=== PATIENT | male | born 1935 | race Caucasian/White ===

== ENCOUNTER → 2016-08-13 | Outpatient (CLI) | payer BC ==
[~2016-08-13] MED LIST: ASCA500 PO; B-COTAB18 PO; CHOL1000 PO; CYAN10005 PO; GLC/500 PO; GLIP2.5T11 PO; VITA1TAB4 PO
--- NOTE | 2016-08-13 13:18 | DIAGNOSTIC IMAGING REPORT ---
RIGHT RIBS UNILATERAL WITH PA CHEST CLINICAL HISTORY: Right ribs including PA erect chest right-sided rib pain COMPARISON STUDY: No previous studies for comparison. FINDINGS: The erect chest reveals no pneumothorax. There is mild aortic tortuosity. There is no focal pulmonary consolidation. 4 supplemental views of the right ribs reveal no fractures. IMPRESSION: No evidence of pneumothorax. No right-sided rib fractures identified. Electronically signed by: Timothy Eng M.D. 08/13/2016 1:16 PM Dictated Date/Time: 08/13/2016 1:14 PM
== END | disposition home or self-care (01) ==
LOC: C.RAD1850 09:55
PROVIDERS: ATTEND Internal Medicine
DX: R07.81 Pleurodynia (principal)

== ENCOUNTER → 2016-09-13 | Outpatient (CLI) | payer BC | END | disposition home or self-care (01) | LOC: C.MAMM 09:34 | PROVIDERS: ATTEND Internal Medicine | DX: E21.3 Hyperparathyroidism, unspecified (principal) ==

== ENCOUNTER → 2016-09-15 | Outpatient (CLI) | payer BC ==
[2016-09-15 09:34] LABS: BASO % 0.2 %; BASO ABS # 0.02 K/uL (0-0.2); COMPLETE YES; EOS % 1.7 %; HEMATOCRIT 43.4 % (42-52); IG% 0.2 %; LYMPH ABS # 3.98 K/uL (1.2-3.4); MEAN CELL VOLUME 92.3 fL (80-100); MEAN CORPUSCULAR HEMOGLOBIN 30.9 pg (25-34); MEAN CORPUSCULAR HGB CONC 33.4 g/dl (32-36); MEAN PLATELET VOLUME 10.2 fL (7.4-10.4); MONO % 6.6 %; NEUT % 43.3 %; PLATELET COUNT 251 K/uL (130-400); WHITE BLOOD COUNT 8.29 K/uL (4.8-10.8)
[2016-09-15 09:58] LABS: ALT/SGPT 27 U/L (12-78); AST/SGOT 18 U/L (15-37); BLOOD UREA NITROGEN 15 mg/dl (7-18); BUN/CREATININE RATIO 15.5 (10-20); CALCIUM 11.2 mg/dl (8.5-10.1); CARBON DIOXIDE 28 mmol/L (21-32); CHLORIDE 106 mmol/L (98-107); CHOLESTEROL 228 mg/dl (0-200); CREATININE 0.98 mg/dl (0.60-1.40); GLUCOSE 99 mg/dl (70-99); SODIUM 141 mmol/L (136-145); TRIGLYCERIDES 241 mg/dl (0-150); VERY LOW DENSITY LIPOPROT CALC 48 mg/dl
[2016-09-15 10:02] LABS: ALKALINE PHOSPHATASE 73 U/L (45-117); CHOLESTEROL/HDL RATIO 3.6; HDL CHOLESTEROL 63 mg/dl; LDL CHOLESTEROL CALCULATED 117 mg/dl; PROSTATE SPECIFIC ANTIGEN 0.983 ng/ml (0.000-4.000)
[2016-09-15 10:17] LABS: ESTIMATED AVERAGE GLUCOSE 131 mg/dl; HA1C FLAG Normal (Normal)
[2016-09-15 10:21] LABS: RATIO 7.1 mcg/mg (0-30.0)
--- NOTE | 2016-09-24 07:00 | CODING QUERY MEDICAL NECESSITY ---
CQSUPPORTING DIAGNOSIS NEEDED A supporting diagnosis is required for the test/procedure performed on this patient in order for us to be reimbursed by the patient's insurance. Please provide a supporting diagnosis for the following test/procedure listed below next to the test name along with your signature. *If there is no additional diagnosis for this patient that would support the following test/procedure please document that below next to the test/procedure. Test(s)/Procedure(s) that require a supporting diagnosis: DOS 09/15/16 PROSTATE SPECIFIC TEST (PSA) Provider Signature: Date: Thank you Marlena Ulloa [facility] Information Management Once completed, please kindly fax back to [phone] For questions please call [phone]
== END | disposition home or self-care (01) ==
LOC: C.LAB 08:15
PROVIDERS: ATTEND Internal Medicine
DX: E11.9 Type 2 diabetes mellitus without complications (principal); E55.9 Vitamin D deficiency, unspecified; E21.3 Hyperparathyroidism, unspecified; R19.4 Change in bowel habit; Z12.5 Encounter for screening for malignant neoplasm of prostate

== ENCOUNTER → 2017-03-16 | Outpatient (CLI) | payer BC ==
[2017-03-16 09:31] LABS: BASO % 0.3 %; BASO ABS # 0.02 K/uL (0-0.2); COMPLETE YES; EOS % 2.1 %; HEMATOCRIT 45.9 % (42-52); IG% 0.1 %; LYMPH % 45.6 %; LYMPH ABS # 3.53 K/uL (1.2-3.4); MEAN CELL VOLUME 94.8 fL (80-100); MEAN CORPUSCULAR HGB CONC 32.7 g/dl (32-36); MEAN PLATELET VOLUME 10.9 fL (7.4-10.4); MONO % 6.8 %; NEUT % 45.1 %; PLATELET COUNT 242 K/uL (130-400); RED BLOOD COUNT 4.84 M/uL (4.7-6.1); WHITE BLOOD COUNT 7.74 K/uL (4.8-10.8)
[2017-03-16 09:57] LABS: BLOOD UREA NITROGEN 15 mg/dl (7-18); CALCIUM 11.5 mg/dl (8.5-10.1); CARBON DIOXIDE 31 mmol/L (21-32); CHLORIDE 107 mmol/L (98-107); GLUCOSE 134 mg/dl (70-99); POTASSIUM 4.2 mmol/L (3.5-5.1); SODIUM 140 mmol/L (136-145)
[2017-03-16 10:01] LABS: ALB/GLOB RATIO 1.1 (0.9-2); ALKALINE PHOSPHATASE 80 U/L (45-117); ALT/SGPT 25 U/L (12-78); AST/SGOT 18 U/L (15-37); CHOLESTEROL 203 mg/dl (0-200); CHOLESTEROL/HDL RATIO 3.4; HDL CHOLESTEROL 60 mg/dl; LDL CHOLESTEROL CALCULATED 107 mg/dl; TRIGLYCERIDES 182 mg/dl (0-150); VERY LOW DENSITY LIPOPROT CALC 36 mg/dl
[2017-03-16 10:05] LABS: ESTIMATED AVERAGE GLUCOSE 123 mg/dl; HA1C FLAG Normal (Normal)
== END | disposition home or self-care (01) ==
LOC: C.LAB 07:40
PROVIDERS: ATTEND Internal Medicine
DX: E21.3 Hyperparathyroidism, unspecified (principal); E78.5 Hyperlipidemia, unspecified; E11.9 Type 2 diabetes mellitus without complications

== ENCOUNTER → 2017-09-06 | Outpatient (CLI) | payer BC ==
[2017-09-06 09:52] LABS: ALBUMIN 4.2 gm/dl (3.4-5.0); ALT/SGPT 27 U/L (12-78); BLOOD UREA NITROGEN 14 mg/dl (7-18); CALCIUM 11.4 mg/dl (8.5-10.1); CARBON DIOXIDE 29 mmol/L (21-32); CHOLESTEROL 207 mg/dl (0-200); CREATININE 1.02 mg/dl (0.60-1.40); GLUCOSE 101 mg/dl (70-99); SODIUM 138 mmol/L (136-145)
[2017-09-06 09:57] LABS: ALKALINE PHOSPHATASE 76 U/L (45-117); AST/SGOT 23 U/L (15-37); LDL CHOLESTEROL CALCULATED 127 mg/dl; TOTAL PROTEIN 7.9 gm/dl (6.4-8.2)
[2017-09-06 10:43] LABS: HEMOGLOBIN A1C 6.6 % (4.5-5.6)
== END | disposition home or self-care (01) ==
LOC: C.LAB 08:26
PROVIDERS: ATTEND Internal Medicine
DX: Z12.5 Encounter for screening for malignant neoplasm of prostate (principal); E11.9 Type 2 diabetes mellitus without complications; E78.5 Hyperlipidemia, unspecified; E21.3 Hyperparathyroidism, unspecified; E55.9 Vitamin D deficiency, unspecified

== ENCOUNTER → 2017-10-31 | Outpatient (CLI) | payer BC ==
--- NOTE | 2017-10-31 15:09 | DIAGNOSTIC IMAGING REPORT ---
L RIBS UNILATERAL WITH PA CHEST CLINICAL HISTORY: LT RIB PAIN pain COMPARISON STUDY: None FINDINGS: No acute bony abnormality. Several old healed rib fractures are present. Lungs are clear. No evidence for pneumothorax. IMPRESSION: 1. No acute bony abnormality 2. several old healed left rib fractures. 3. Lungs are clear. The above report was generated using voice recognition software. It may contain grammatical, syntax or spelling errors. Electronically signed by: Jeovany Gatica M.D. 10/31/2017 3:07 PM Dictated Date/Time: 10/31/2017 3:06 PM
== END | disposition home or self-care (01) ==
LOC: C.RAD1850 14:52
PROVIDERS: ATTEND Physician Assistant
DX: R07.81 Pleurodynia (principal)

== ENCOUNTER 2020-03-20 14:55 | Observation (INO) ==
[2020-03-20] MEDS ORDERED: SODIUM CHLORIDE 0.9% 500 ML IV SCH (15:30)
[2020-03-20] MEDS ORDERED: SODIUM CHLORIDE 0.9% 1000ML 1,000 ML IV SCH (15:30)
[2020-03-20 16:02] LABS: Basophils # (auto) 0.01 K/uL (0-0.2); Basophils % (auto) 0.1 %; Eosinophils % (auto) 0.9 %; Hemoglobin 10.9 g/dL (14.0-18.0); Immature Granulocytes # (auto) 0.03 K/uL (0.00-0.02); Immature Granulocytes % (auto) 0.3 %; Lymphocytes # (auto) 3.17 K/uL (1.2-3.4); Lymphocytes % (auto) 27.7 %; Mean Corpuscular Hemoglobin 29.8 pg (25-34); Mean Corpuscular Volume 90.2 fL (80-100); Mean Platelet Volume 9.3 fL (7.4-10.4); Monocytes % (auto) 6.1 %; Neutrophils # (auto) 7.43 K/uL (1.4-6.5); Neutrophils % (auto) 64.9 %; Platelet Count 436 K/uL (130-400); RDW Standard Deviation 42.3 fL (36.4-46.3); Red Blood Count 3.66 M/uL (4.7-6.1); White Blood Count 11.44 K/uL (4.8-10.8)
--- NOTE | 2020-03-20 16:05 | XRay Report ---
XR chest 1V portable CLINICAL HISTORY: weakness COMPARISON STUDY: Chest radiograph August 10, 2019. FINDINGS: Lung volumes are normal. Lungs are clear. There is no pneumothorax or pleural effusion. Car diac size is normal. Mediastinal contours are normal. There is no evidence for pulmonary edema. There is slight elevation of the right hemidiaphragm. IMPRESSION: No acute cardiopulmonary findings. ACT 112: Negative or not required by law. Electronically signed by: Arpit Peoples M.D. 03/20/2020 4:04 PM
[2020-03-20 16:25] LABS: Alanine Aminotransferase 13 U/L (12-78); Albumin Level 2.7 gm/dl (3.4-5.0); Aspartate Aminotransferase 10 U/L (15-37); BUN Creatinine Ratio 16.8 (10-20); Blood Urea Nitrogen 20 mg/dl (7-18); Calcium 13.6 mg/dl (8.5-10.1); Carbon Dioxide 29 mmol/L (21-32); Chloride 105 mmol/L (98-107); Est GFR (Non-African American) 55.2; Glucose 153 mg/dl (70-99); Magnesium 1.9 mg/dl (1.8-2.4); Potassium 3.9 mmol/L (3.5-5.1); Sodium 138 mmol/L (136-145)
--- NOTE | 2020-03-20 16:26 | Emergency Department Note ---
Impression & Plan Hypercalcemia, Weakness ED Provider Note INFORMANT: Patient ED PROVIDER(S): Rahat Mccray MD CHIEF COMPLAINT: Neck pain PLAN: Disposition: Admitted Condition: Good MEDICAL DECISION MAKING: Patient presented with complaints of neck pain. He also had issues with hypercalcemia and was initially declining treatment. He is now agreeable. He was started on IV fluids. ECG revealed a sinus rhythm with a first-degree block. No dysrhythmias or acute changes noted. Patient had blood work obtained. He was found to be hypercalcemic. He underwent CT imaging of the neck. The patient's CBC and chemistry panel were unremarkable except for significant hypercalcemia and hypoalbuminemia. His corrected serum calcium measurement was approximately 14.64. Because of this further management will be necessary in the hospital and the patient is finally in agreement. He was hydrated with normal saline and given subcutaneous calcitonin. Consultation was made with [facility]. The patient was evaluated in the ER admitted for further management. Triage Nursing notes reviewed and agree them. Additional history obtained from patient's Prior medical records reviewed elevated calcium levels noted over the last several months. Increasing recently. Last outpatient blood work had a corrected calcium level over 14. Vital Signs: reviewed and remarkable for no significant abnormalities Differential diagnosis: Infection, dehydration, metabolic abnormality, hypo/hyperglycemia, electrolyte disturbance, anemia, hypoxia, cardiac sources, intracerebral event, toxicologic, neurologic, as well as other pathologies. Diagnostics interpreted by me: ECG: Twelve-lead ECG reveals a sinus rhythm with first-degree block at 79 bpm. Left axis deviation. Inferior Q waves present. No ST elevation or depression. Normal QRS Cardiac Monitoring: Cardiac monitoring ordered by me: The patient was placed on continuous cardiac monitoring and observed. It revealed a normal sinus rhythm at 72 beats per minute without ectopy or evidence of dysrhythmia. Imaging studies: CT imaging of the neck did not reveal any acute process regarding the cervical spine as well as the anterior neck and thyroid. I refer you to the EMR for f urther details. Consultation(s): [facility] hospitalist service, and Gracy Good PA-C HPI: The patient is a 85 year old male who presents to the Emergency Room with complaints of neck pain. This started few days ago and is located anteriorly and is tender to the touch. Patient and significant other also notes that his labs have been abnormal and his PCP has been following him for high calcium levels. He was diagnosed with hyperparathyroidism. PCP was recommending treatment but the patient was declining. PCP even was recommending specialization as his recent levels have been over 13 and the patient was declining. He began to feel weak and rundown. He notes some balance difficulty and was noting fatigue. He agreed to come to the ER for evaluation and treatment. Pt denies LOC, headache, fevers, chills, diaphoresis, visual changes, posterior neck pain, chest pain, breathing difficulties, nausea, vomiting, abdominal pain, back pain, melena, hematochezia, urinary symptoms, numbness,lymphadenopathy, rash, or other complaints. ROS: See above HPI for pertinent positives & negatives. A total of 10 systems reviewed and were otherwise negative. PAST MEDICAL HISTORY:See Below, diabetes, hypertension PAST SURGICAL HISTORY:See Below FAMILY HISTORY:See Below SOCIAL HISTORY:See Below, HOME MEDICATIONS:See Below ALLERGIES:See Below VITALS:See Below PHYSICAL EXAMINATION: GENERAL: Awake, alert, well-appearing, in no distress HENT: Normocephalic, atraumatic. Oropharynx unremarkable. EYES: Normal conjunctiva. Sclera non-icteric. NECK: Inspection normal. Non-tender posteriorly. There is some mild tenderness over the left thyroid cartilage. No obvious masses or abnormalities there. Supple. No nuchal rigidity. FROM. No masses. RESPIRATORY: Clear to auscultation. No wheezes. No rales. Normal respiratory effort. CARDIAC: Normal rate. Normal rhythm. No murmurs. No rubs. Extremities warm and well perfused. Pulses equal. No JVD. GI: Soft, non-distended. No tenderness to palpation. No rebound or guarding. No masses. RECTAL: Deferred. MUSCULOSKELETAL: Atraumatic. Chest examination reveals no tenderness. The back is symmetrical on inspection without obvious abnormality. There is no CVA tenderness to palpation. No joint edema. LOWER EXTREMITIES: Calves are equal size bilaterally and non-tender. No edema. No discoloration. NEURO: Normal sensorium. No sensory or motor deficits noted. SKIN: No rash or jaundice noted. Rahat Mccray MD Past Med/Surg History Medical History (Updated 03/20/20 @ 17:34 by Tamar Good PA-C) H/O adenomatous polyp of colon Hyperparathyroidism Popliteal cyst Type 2 diabetes mellitus Surgical History S/P inguinal hernia repair Family History Sister Bladder cancer Diabetes Mother Diabetes Father Diabetes Denies family history of Ovarian cancer Prostate cancer Myocardial infarction Breast cancer Colorectal cancer Social History Smoking Status: Never smoker Hx Alcohol Use: No Hx Substance Use: No Preferred Language: Czech Communication Ability: Effective Visual Impairment: No Limitations Hearing Ability: Normal marital status: Current Living Situation: Spouse current occupational status: retired Feels Safe at Home: Yes Childhood Exposure to Second-Hand Smoke: Yes Dental Care, Regularly: Yes Physical Activity Frequency: 3-4 Times per Week Seatbelt Use: always Sunscreen Use: No Allergies Allergies Allergy/AdvReac Type Severity Reaction Status Date / Time No Known Allergies Allergy Verified 03/20/20 16:17 Home Meds Home Medications Medication Instructions Recorded Confirmed multivitamin,[id number] 1 tab PO DAILY 08/10/19 03/20/20 Previous Rx's Medication Instructions Recorded glipizide 2.5 mg tablet, extended 2.5 mg PO DAILY #90 tab 09/21/19 release 24 hr metformin 500 mg tablet 500 mg PO DAILY #180 tab 09/21/19 telmisartan 40 mg tablet 40 mg PO DAILY #90 tab 09/21/19 Results & Data (ED) Vital Signs Vital Signs - 24 hr 03/20/20 15:10 03/20/20 15:14 03/20/20 15:56 Temperature 36.9 C Temperature Source Oral Oral Pulse Rate 87 Respiratory Rate 18 Respiratory Effort / Characteristics Non-Labored Spontaneous Respiratory Depth Normal Respiratory Pattern Regular Blood Pressure 104/75 Blood Pressure Mean 84 Pulse Oximetry 95 Oxygen Delivery Method Room Air Room Air Sepsis Recent Fever Within 48 Hours No Sepsis New/Unexplained Change in Mental Status No Sepsis Action Taken by Nursing No Action Required Laboratory Data Result diagrams: 03/20/20 15:53 03/20/20 15:53 Lab Results 03/20/20 03/20/20 Range/Units 15:53 15:53 WBC 11.44 H (4.8-10.8) K/uL RBC 3.66 L (4.7-6.1) M/uL Hgb 10.9 L (14.0-18.0) g/dL Hct 33.0 L (42-52) % MCV 90.2 (80-100) fL MCH 29.8 (25-34) pg MCHC 33.0 (32-36) g/dL RDW Std Deviation 42.3 (36.4-46.3) fL RDW Coeff of Marian 13.0 (11.5-14.5) % Plt Count 436 H (130-400) K/uL MPV 9.3 (7.4-10.4) fL Immature Gran % (Auto) 0.3 % Neut % (Auto) 64.9 % Lymph % (Auto) 27.7 % [place] % (Auto) 6.1 % Eos % (Auto) 0.9 % Baso % (Auto) 0.1 % Neut # (Auto) 7.43 H (1.4-6.5) K/uL Lymph # (Auto) 3.17 (1.2-3.4) K/uL [place] # (Auto) 0.70 H (0.11-0.59) K/uL Eos # (Auto) 0.10 (0-0.5) K/uL Baso # (Auto) 0.01 (0-0.2) K/uL Immature Gran # (Auto) 0.03 H (0.00-0.02) K/uL Sodium 138 (136-145) mmol/L Potassium 3.9 (3.5-5.1) mmol/L Chloride 105 (98-107) mmol/L Carbon Dioxide 29 (21-32) mmol/L Anion Gap 4.0 (3-11) BUN 20 H (7-18) mg/dl Creatinine 1.20 (0.6-1.4) mg/dl Est Cr Clr Drug Dosing Not Reportable Est GFR ( Amer) 64.0 Est GFR (Non-Af Amer) 55.2 BUN/Creatinine Ratio 16.8 (10-20) Glucose 153 H (70-99) mg/dl Calcium 13.6 H* (8.5-10.1) mg/dl Magnesium 1.9 (1.8-2.4) mg/dl Total Bilirubin 0.3 (0.2-1) mg/dl AST 10 L (15-37) U/L ALT 13 (12-78) U/L Alkaline Phosphatase 84 (45-117) U/L Troponin I 0.017 (0-0.045) ng/ml Total Protein 7.3 (6.4-8.2) gm/dl Albumin 2.7 L (3.4-5.0) gm/dl Globulin 4.6 H (2.5-4.0) gm/dl Albumin/Globulin Ratio 0.6 L (0.9-2) TSH 1.550 (0.300-4.500) uIu/ml Administered Medications Sodium Chloride (Nss 1000ml) 1,000 mls @ 125 mls/hr IV .Q8H LISA Stop: 03/20/20 23:29 Last Admin: 03/20/20 16:57 Dose: 125 mls/hr Documented by: [id number] Discontinued Medications Sodium Chloride (Nss) 500 mls @ 999 mls/hr IV .Q31M LISA Stop: 03/20/20 16:00 Last Infusion: 03/20/20 16:57 Dose: 0 mls/hr Documented by: [id number] Admin: 03/20/20 15:58 Dose: 999 mls/hr Documented by: [id number] Ioversol (Ioversol 100ml) 90 ml IV ONCE ONE Stop: 03/20/20 17:16 Last Admin: 03/20/20 17:15 Dose: 90 ml Documented by: [id number] Discharge Plan Visit Data Chief Complaint: Neck Injury/Pain Stated Complaint: THROAT PAIN FOR 1 WEEK ED Provider: Rahat Mccray Discharge Problem: Hypercalcemia, Weakness Forms Stand Alone Forms: [facility] Prescriptions Prescriptions: No Action telmisartan [Micardis] 40 mg tablet 40 mg PO DAILY Qty: 90 RF: 3 glipizide 2.5 mg tablet extended release 24hr 2.5 mg PO DAILY Qty: 90 RF: 3 metformin 500 mg tablet 500 mg PO DAILY Qty: 180 RF: 1 Complete Multivitamin Tablet 1 tab PO DAILY RF: 0
[2020-03-20 16:34] LABS: Albumin Globulin Ratio 0.6 (0.9-2); Alkaline Phosphatase 84 U/L (45-117); Bilirubin,Total 0.3 mg/dl (0.2-1); Globulin 4.6 gm/dl (2.5-4.0); Total Protein 7.3 gm/dl (6.4-8.2); Troponin I 0.017 ng/ml (0-0.045)
[2020-03-20] MEDS ORDERED: CALCITONIN SALMON 400 UNITS/2 ML SQ STA (16:41)
[2020-03-20] MEDS ORDERED: IOVERSOL 100ml IV ONE (17:15)
--- NOTE | 2020-03-20 17:26 | CT Scan Report ---
CERVICAL SPINE CT CT DOSE: 776.98 mGy.cm HISTORY: neck pain TECHNIQUE: Multiaxial CT images of the cervical spine were performed and reformatted in the sagittal and coronal plane without the use of contrast. A dose lowering technique was utilized adhering to th e principles of ALARA. COMPARISON: None. FINDINGS: No fracture or subluxation within the cervical spine. Prevertebral soft tissues and the C1- C2 interval are intact. Severe disc space narrowing from C3 through C7. Moderate facet degenerative c hanges throughout the majority of the cervical spine. Mild central canal narrowing at C3-C4 and C4-C5 due to small broad-based posterior disc osteophyte complexes. No pneumothorax. IMPRESSION: No fractures within the cervical spine. Degenerative changes as described above. ACT 112: Negative or not required by law. Electronically signed by: Ridge Rider M.D. 03/20/2020 5:24 PM
--- NOTE | 2020-03-20 17:29 | CT Scan Report ---
CT soft tissue neck w con HISTORY: 85 years-old Male hypercalcemia, hyperparathyroidism, ant neck pain acute anterior neck jerson n COMPARISON: CT cervical spine of same day and also 02/27/2020 TECHNIQUE: Multiple axial CT images of the soft tissues of the neck were obtained following the intra venous administration of 90 mL Optiray 320. A dose lowering technique was used consistent with the pr incipals of ALARA. FINDINGS: Image intracranial structures demonstrate no acute abnormality. Cerebral vascular calcifications are noted in addition to moderate mixed plaque of the carotid bulbs and proximal internal carotid arterie s. Heterogeneous thyroid. 2.0 x 1.3 cm hypodense nodules again seen posterior to the right thyroid lo be. There is no adenopathy. The parotid and submandibular glands are unremarkable. Streak artifact fr om dental amalgam hardware limits the study. The parapharyngeal fat planes are symmetric and well jacky ntained. The nasopharynx, oral pharynx and hypopharynx are patent. There is mild soft tissue nodular thickening measuring 9 x 8 mm within the region of the median glossoepiglottic fold on image 180 seri es 5. The glottis and subglottic airway appear normal. There is a skin marker noted anterior to the t hyroid cartilage with no focal abnormality identified deep to this. Calcifications of the palatine to nsils. 2 mm likely benign soft tissue nodule of the left upper lobe. Degenerative changes of the spine. No a cute fracture or suspicious bone lesion. IMPRESSION: 1. No acute infectious or inflammatory process involves the soft tissues of the neck. The airway is p atent. 2. No adenopathy. 3. Skin marker of the left paracentral neck superficial to the thyroid cartilage. No abnormalities id entified deep to this. 4. There is subcentimeter soft tissue thickening noted involving the median glossoepiglottic fold. Th is could be correlated with direct visualization to exclude a mucosal lesion. 5. 2.0 x 1.3 cm exophytic nodule of the posterior right thyroid redemonstrated. ACT 112: Negative or not required by law. The above report was generated using voice recognition software. It may contain grammatical, syntax o r spelling errors. Electronically signed by: Geovanny Garcia M.D. 03/20/2020 5:28 PM
--- NOTE | 2020-03-20 17:47 | History & Physical Report ---
Date of Service March 20, 2020 Assessment & Plan (1) Hypercalcemia: -Admit to [facility] with tele -Elevated at 13.6 on admission, corrected calcium with hypoalbuminemia is 14.6 -Increase fluids to 200ml/hr, had received NSS at 125 ml/hr in ER after getting a 500 mL bolus -Trend BMP q6H -Administration of calcitonin 320 U sq x 1 -EKG reviewed -PT/OT consults -Consult endocrinology, Dr. Ricks -CT soft tissue neck reviewed: IMPRESSION: 1. No acute infectious or inflammatory process involves the soft tissues of the neck. The airway is patent. 2. No adenopathy. 3. Skin marker of the left paracentral neck superficial to the thyroid cartilage. No abnormalities identified deep to this. 4. There is subcentimeter soft tissue thickening noted involving the median glossoepiglottic fold. This could be correlated with direct visualization to exclude a mucosal lesion. 5. 2.0 x 1.3 cm exophytic nodule of the posterior right thyroid redemonstrated. - Pt appears to be flushed in the face and over his ears during my exam - likely secondary to calcitriol administration. - Hands appear edematous on exam - possible bony component from hypercalcemia? If not improving consider imaging. (2) Weakness: -Likely secondary to above. (3) Hyperparathyroidism: -PTH 292.7 -Endocrinology consult as above (4) Type 2 diabetes mellitus: -ISS with accuchecks achs -A1c equals 6.2 on 03/11/2020 -Hold glipizide and metformin (5) HTN (hypertension): -Continue telmisartan 40 mg daily in am, BP slightly elevated here in the ER, likely secondary to increased anxiety with being in the ER, can consider use of IV hydralazine overnight if BP remains high. (6) Hyperlipidemia: -Not on statin therapy (7) Vitamin D deficiency: -History of such, continue multivitamin (8) Cervical arthritis: -Chronic, CT of the neck reviewed which does not show any new acute findings, no fractures -Patient with recent fall about 2 weeks ago, was seen here in the ER. Had small laceration to the R wrist but sutures have been removed. Uses a cane at baseline when he is outside the home, but not otherwise. -CT neck reviewed and negative for acute findings other than known nodule as above. -PT/OT consults as above (9) DVT prophylaxis: - teds, scds CODE: Full Dispo: From home, likely to remain in the hospital x 1-2 days History of Present Illness Primary Care Provider: Manish Mejia MD This is a 85 yo male with past medical history of HTN, DM type II, hyperpara thyroidism, thyroid nodule, hypercalcemia, vitamin D deficiency who presents to the ER with complaints of neck pain and by referral of his PCP after some reluctance. Pt is present here with his . Patient was found to have a calcium level of 13.6, which has been ongoing for about a year and slowly trending upward. His albumin has been decreasing at the same time. He has been following with his PCP for this over the past few months and has had elevated calcium levels and was encouraged to seek specialist referral with endocrinology however has been hesitant to seek further recommendations. His main symptoms include fatigue sleeping upwards of 12 hours/day. He also has complaints of neck pain in anterior left region which is been ongoing for about 3 weeks, rates it a 4/10 in pain, and nothing specifically alleviates it. He cannot feel a nodule and denies specific area of swelling in throat. He does not typically have trouble swallowing foods, but occasionally food does get stuck which is alleviated with drinking fluids. Pt reports dry mouth and frequent urination throughout the night which has been ongoing for many months. Lastly, his is concerned that his mood has been poor, and thinks he is depressed. He denies anhedonia, suicidal or homicidal ideations. He has been taking his medication as directed. Patient has received 500 mL bolus NSS and currently remains on fluids. IV calcitonin ordered. EKG has been reviewed without T wave changes. Allergies Allergy/AdvReac Type Severity Reaction Status Date / Time No Known Allergies Allergy Verified 03/20/20 16:17 Home Medications Home Medications Medication Instructions Recorded Confirmed Type multivitamin,ol-etfs-sqahsiog 1 tab PO DAILY 08/10/19 03/20/20 History glipizide 2.5 mg tablet, extended 2.5 mg PO DAILY #90 tab 09/21/19 03/20/20 Rx release 24 hr metformin 500 mg tablet 500 mg PO DAILY #180 tab 09/21/19 03/20/20 Rx telmisartan 40 mg tablet 40 mg PO DAILY #90 tab 09/21/19 03/20/20 Rx cinacalcet 60 mg PO BID 30 Days #60 tab 03/22/20 Rx Past Med/Surg History Medical History (Updated 03/24/20 @ 00:02 by Rick Mason) H/O adenomatous polyp of colon Hyperlipidemia Hyperparathyroidism Popliteal cyst Type 2 diabetes mellitus Vitamin D deficiency Surgical History S/P inguinal hernia repair Family History Sister Bladder cancer Diabetes Mother Diabetes Father Diabetes Denies family history of Ovarian cancer Prostate cancer Myocardial infarction Breast cancer Colorectal cancer Social History Smoking Status: Never smoker Hx Alcohol Use: Yes Alcohol type: beer and wine Hx Substance Use: No Preferred Language: Irish Communication Ability: Effective Visual Impairment: No Limitations Hearing Ability: Normal Desktop Analyst Required: No Beliefs That Will Affect Care: None marital status: Current Living Situation: Spouse current occupational status: retired Feels Safe at Home: Yes Childhood Exposure to Second-Hand Smoke: Yes Dental Care, Regularly: Yes Physical Activity Frequency: 3-4 Times per Week Seatbelt Use: always Sunscreen Use: No Review of Systems Review of Systems: Constitutional: No fever, sweats or chills Eyes: No diplopia, no worsening or blurred vision ENT: normal hearing, no trouble swallowing, + occasional food gets stuck with swallowing but alleviated with drinking fluid, no edema, + tenderness with palpation of the left anterior neck. Respiratory: No cough, sputum, dyspnea at rest or on exertion Cardiovascular: No chest pain, tightness or palpitations Abdomen: No pain, nausea, vomiting, diarrhea or constipation Musculoskeletal: No joint pain, calf pain, swelling Neurologic: No weakness, numbness/tingling, or balance problems Psychiatric: No anxiety or depression Skin: No rash or itch Physical Exam Physical Exam: General: awake, alert, no apparent distress Head: Normocephalic, atraumatic, + flushed over cheeks and ears bilaterally ENT: PERRL, EOMI, no pharyngeal exudate, mucous membranes moist, no edema. Chest: Clear to auscultation, on room air, no adventitious breath sounds Cardiac: Regular rate and rhythm, no murmur, no JVD, normal peripheral pulses, good capillary refill Abdominal: NABS x 4 quadrants, soft, nondistended, nontender to palpation, no rebound or guarding Extremities: + peripheral edema involving hands bilaterally and feet with 1+ pitting up to knees. No erythema, calfs nontender to palpation Psych: Normal mood and affect Neuro: AAO x 3, strength intact bilaterally and rated 5/5, no motor deficits, speech is clear, no peripheral sensory deficits Results & Data Results & Data ([facility]) Vital Signs (Past 12 Hours) Vital Signs Temp Pulse Resp BP Pulse Ox 03/20/20 15:10 36.9 C 87 18 104/[address] soft tissue neck w con HISTORY: 85 years-old Male hypercalcemia, hyperparathyroidism, ant neck pain acute anterior neck pain COMPARISON: CT cervical spine of same day and also 02/27/2020 TECHNIQUE: Multiple axial CT images of the soft tissues of the neck were obtained following the intravenous administration of 90 mL Optiray 320. A dose lowering technique was used consistent with the principals of CHRISTY. FINDINGS: Image intracranial structures demonstrate no acute abnormality. Cerebral vascular calcifications are noted in addition to moderate mixed plaque of the carotid bulbs and proximal internal carotid arteries. Heterogeneous thyroid. 2.0 x 1.3 cm hypodense nodules again seen posterior to the right thyroid lobe. There is no adenopathy. The parotid and submandibular glands are unremarkable. Streak artifact from dental amalgam hardware limits the study. The parapharyngeal fat planes are symmetric and well maintained. The nasopharynx, oral pharynx and hypopharynx are patent. There is mild soft tissue nodular thickening measuring 9 x 8 mm within the region of the median glossoepiglottic fold on image 180 series 5. The glottis and subglottic airway appear normal. There is a skin marker noted anterior to the thyroid cartilage with no focal abnormality identified deep to this. Calcifications of the palatine tonsils. 2 mm likely benign soft tissue nodule of the left upper lobe. Degenerative changes of the spine. No acute fracture or suspicious bone lesion. IMPRESSION: 1. No acute infectious or inflammatory process involves the soft tissues of the neck. The airway is patent. 2. No adenopathy. 3. Skin marker of the left paracentral neck superficial to the thyroid cartilage. No abnormalities identified deep to this. 4. There is subcentimeter soft tissue thickening noted involving the median glossoepiglottic fold. This could be correlated with direct visualization to exclude a mucosal lesion. 5. 2.0 x 1.3 cm exophytic nodule of the posterior right thyroid redemonstrated. ECG Additional Comments: 20-MAR-2020 16:04:53 [facility]-EDSTAT ROUTINE RETRIEVAL Sinus rhythm with 1st degree A-V block Left axis deviation Inferior infarct , age undetermined Abnormal ECG No previous ECGs available 25mm/s 10mm/mV 150Hz 9.0.9 12SL 241 HD GORDY: 12 Referred by: Manish Mejia Unconfirmed Vent. rate 79 BPM WI interval 268 ms QRS duration 82 ms QT/QTc 336/385 ms P-R-T axes 40 -44 11 Code Status & VTE Plan Code Status Full -discussed with the patient and his at bedside. Supervising Physician Co-Signing Physician Notes During my face to face encounter with the patient, I obtained a history and physical examination on the patient. I discussed plan of care with patient and Gracy Good and answered patient's questions. I reviewed above note and agree with it. In regards to the patient's hypercalcemia, will place patient on calcitonin and IVF. will monitor calcium PG Care Time/CCT Total # of Minutes Spent Total Time Spent with Patient: Total time spent is greater than 50% in coordination of care (as documented) at patient's floor/unit and/or counseling patient: Coding Level of Care Code 48898 Initial Inpt Care Lvl 3 Diagnoses Hypercalcemia E83.52 Weakness R53.1 Hyperparathyroidism E21.3 Type 2 diabetes mellitus E11.9 HTN (hypertension) I10 Hyperlipidemia E78.5 Vitamin D deficiency E55.9 Cervical arthritis M47.812 DVT prophylaxis Z29.9
[2020-03-20 18:15] LABS: Appearance Urine Clear (Clear); Bilirubin Urine Negative (Negative); Blood Urine Negative (Negative); Color Urine Dark Yellow; Glucose Urine UA Negative (Negative); Ketones Urine Negative (Negative); Leukocyte Esterase Urine Negative (Negative); Nitrite Urine Negative (Negative); Protein Urine Negative (Negative); Specific Gravity Urine 1.011 (1.000-1.030); Urobilinogen Urine Negative (Negative)
[2020-03-20] MEDS ORDERED: ACETAMINOPHEN 325 MG TAB PO PRN (19:38)
[2020-03-20] MEDS ORDERED: GLUCAGON FOR INJ 1 MG VIAL SQ PRN (19:38)
[2020-03-20] MEDS ORDERED: CARBOHYDRATES FOR HYPOGLYCEMIA PO PRN (19:38)
[2020-03-20] MEDS ORDERED: ONDANSETRON INJ 2 MG/ML 2 ML VIAL IV PRN (19:38)
[2020-03-20] MEDS ORDERED: DEXTROSE 50% 50 ML SYRINGE IV PRN (19:38)
[2020-03-20] MEDS ORDERED: GLUCOSE 40% GEL 15 GM TUBE PO PRN (19:38)
[2020-03-20] MEDS ORDERED: GLUCOSE 10 TABS/TUBE PO PRN (19:38)
[2020-03-20] MEDS: SODIUM CHLORIDE 0.9% 1000ML 1,000 ML IV SCH (20:15)
[2020-03-20] MEDS: INSULIN ASPART 100 UNITS/ML 3 ML PEN SC SCH (20:49)
[2020-03-20 22:46] LABS: BUN Creatinine Ratio 16.4 (10-20); Calcium 12.7 mg/dl (8.5-10.1); Creatinine Clr Calc Pharmacy 46.6 ml/min; Est GFR (African American) 65.3; Est GFR (Non-African American) 56.3
[2020-03-21] MEDS: SODIUM CHLORIDE 0.9% 1000ML 1,000 ML IV SCH (01:20)
[2020-03-21 03:50] LABS: Hematocrit (blood only) 31.4 % (42-52); Hemoglobin 10.4 g/dL (14.0-18.0); Mean Corpuscular Hemoglobin 29.9 pg (25-34); Mean Corpuscular Hgb Conc 33.1 g/dL (32-36); Mean Corpuscular Volume 90.2 fL (80-100); Mean Platelet Volume 9.4 fL (7.4-10.4); Platelet Count 409 K/uL (130-400); RDW Standard Deviation 42.4 fL (36.4-46.3); Red Blood Count 3.48 M/uL (4.7-6.1); White Blood Count 9.98 K/uL (4.8-10.8)
[2020-03-21 04:07] LABS: BUN Creatinine Ratio 16.6 (10-20); Calcium 11.6 mg/dl (8.5-10.1); Creatinine Clr Calc Pharmacy 51.9 ml/min; Est GFR (African American) 74.3; Est GFR (Non-African American) 64.1; Magnesium 1.7 mg/dl (1.8-2.4); Potassium 3.8 mmol/L (3.5-5.1)
[2020-03-21 04:20] LABS: Phosphorus 1.5 mg/dl (2.5-4.9)
[2020-03-21] MEDS: CEROVITE ADV FORMULA TAB PO SCH (08:26)
[2020-03-21] MEDS: TELMISARTAN 40 MG TAB PO SCH (08:26)
[2020-03-21] MEDS: INSULIN ASPART 100 UNITS/ML 3 ML PEN SC SCH ×4 (08:28→20:11)
[2020-03-21] MEDS ORDERED: CALCITONIN SALMON 400 UNITS/2 ML SQ SCH (09:00)
[2020-03-21] MEDS: CALCITONIN SALMON SQ SCH ×2 (10:38→20:09)
--- NOTE | 2020-03-21 12:38 | Electrocardiogram Report ---
Test Reason : Blood Pressure : / mmHG Vent. Rate : 079 BPM Atrial Rate : 079 BPM P-R Int : 268 ms QRS Dur : 082 ms QT Int : 336 ms P-R-T Axes : 040 -44 011 degrees QTc Int : 385 ms Sinus rhythm with 1st degree A-V block Left axis deviation possible Inferior infarct , age undetermined Abnormal ECG No previous ECGs available Confirmed by Gurdeep Mantilla ([id number]) on 03/21/2020 12:38:09 PM Referred By: Manish Mejia Confirmed By:Roosevelt Mantilla
--- NOTE | 2020-03-21 12:56 | Medical Student Progress Note ---
Date of Service March 21, 2020 Assessment & Plan (1) Hypercalcemia: -Corrected calcitonin on admission was 14.3 and was improved to 12.8 today demonstrating calcitonin response. -Trend BMP q6H -Continue administration of calcitonin 320 U sq x 1 QD -PT/OT consults -Consult endocrinology, Dr. Ricks -Appreciate rec. Going to confirm inpatient endo service exists -Hands appear swollen. (2) Weakness: -PT/OT consult -Likely secondary to above. (3) Hyperparathyroidism: Elevated calcium + elevated PTH points to primary hyperparathyroidism diagnosis. -PTH 292.7 -Endocrinology consult as above (4) Type 2 diabetes mellitus: -ISS with accuchecks achs -A1c equals 6.2 on 03/11/2020 -Hold glipizide and metformin (5) HTN (hypertension): -Continue telmisartan 40 mg daily (6) Hyperlipidemia: -Not on statin therapy -Recommend on discharge to follow up with pcp to discuss statin therapy. (7) Vitamin D deficiency: -History of such, continue multivitamin (8) Cervical arthritis: -PT/OT consults as above (9) DVT prophylaxis: - teds, scds CODE: full F/E/N: Heart healthy, DM 2 PT/OT: Ordered Dispo: Telemetry Admission and Anticipated Discharge Date Admission Date: March 20, 2020 Supervising Attestation Attending attestation Pt seen and examined in concert with Dr. Coffman, Std Dr Khan. In agreement with the documented findings as noted in the resident documentation with any exceptions or additions as noted here. 85 y/o male h/o hyperparathyroidism and hypercalcemia, DMII, HTN, cervical arthritis presents with neck pain, weakness, hypercalcemia Somnolent in bed but interactive - complains of persistent weakness and polyuria, as well as chronic intermittent hand swelling - still would like to be discharged ROGELIO despite this. On examination, S1/S2 nl RRR no MCG. CTAB. Abd NT/ND BS+ve Hypercalcemia 2/2 hyperparathyroidism - downtrending calcium s/p calcitonin - continue dose, transition to daily. Would definitely benefit from PT/OT. Endocrinology consultation if able inpatient. DMII - ISS - restart glipizide and metformin at discharge HLD - would recommend statin therapy at follow up from discharge Else see resident documentation as noted. Subjective Pt is an 85 year old male with a PMH hyperparathyroid, DMT2, and hypercalcemia presenting with neck pain, fatigue, weakness, and frequent urination diagnosed with primary hyperparathyroidism with new symptomatic hypercalcemia. Pt was aware of increasing calcium levels and was regularly notified by primary care physician about the need for treatment. Pt reports an intermittent, sharp, "burning" pain in his anterior left neck which prompted a visit with his PCP and was endorsed by both his and PCP to come to the ER. The pt denies any difficulty breathing or swallowing. Pt endorses weakness, fatigue and balance difficulties. Denies nausea or vomiting, fever chills, or LOC. Pt was given IVF and Calcitonin. The IVF was discontinued due to observation of swollen hands. Upon questioning the pt this morning, swollen hands were found to be consistent with his usual state of health over the last few month. CT of his neck discovered benign 2 cm nodule on left upper lobe. Pt was unsteady a few weeks ago which resulted in a FOOSH with no fractures but a discovery of cervical arthritis. Pt is apprehensive to surgery due to extended pain from previous hernia sx. This morning pt was found sitting upright in bed in no acute distress. No new events overnight and slept okay. Tolerating diet, voiding, and endorses constipation. All questions answered, no acute concerns. Still endorses left anterior neck pain, with no change in severity. Review of Systems Constitutional: + fatigue and + weakness Ear, Nose, Mouth, Throat: as per Subjective / HPI Endocrine: + fatigue Physical Exam Constitutional: Pt was well appearing seated up in bed upon entry. Neck: trachea midline, no thyromegaly normal visual inspection Respiratory: normal respiratory effort, lungs clear to auscultation Cardiovascular: Rate/Rhythm: regular rate and regular rhythm Heart Sounds: normal S1 and normal S2 Gastrointestinal (Abdomen): normal bowel sounds, soft, nontender, no hepatosplenomegaly Results & Data ([facility]) Vital Signs (Past 12 Hours) Vital Signs Temp Pulse Resp BP BP Pulse Ox 03/21/20 11:37 36.4 C L 72 18 168/77 H 93 03/21/20 06:32 36.8 C 82 18 138/76 92 03/21/20 04:07 36.7 C 80 18 125/67 94 Laboratory Results 03/21/20 03/21/20 03/21/20 Range/Units 11:30 08:37 07:44 WBC (4.8-10.8) K/uL RBC (4.7-6.1) M/uL Hgb (14.0-18.0) g/dL Hct (42-52) % MCV (80-100) fL MCH (25-34) pg MCHC (32-36) g/dL RDW Std Deviation (36.4-46.3) fL RDW Coeff of Marian (11.5-14.5) % Plt Count (130-400) K/uL MPV (7.4-10.4) fL Immature Gran % (Auto) % Neut % (Auto) % Lymph % (Auto) % [place] % (Auto) % Eos % (Auto) % Baso % (Auto) % Neut # (Auto) (1.4-6.5) K/uL Lymph # (Auto) (1.2-3.4) K/uL [place] # (Auto) (0.11-0.59) K/uL Eos # (Auto) (0-0.5) K/uL Baso # (Auto) (0-0.2) K/uL Immature Gran # (Auto) (0.00-0.02) K/uL Sodium (136-145) mmol/L Potassium (3.5-5.1) mmol/L Chloride (98-107) mmol/L Carbon Dioxide (21-32) mmol/L Anion Gap (3-11) BUN (7-18) mg/dl Creatinine (0.6-1.4) mg/dl Est Cr Clr Drug Dosing Est GFR ( Amer) Est GFR (Non-Af Amer) BUN/Creatinine Ratio (10-20) Glucose (70-99) mg/dl POC Glucose 150 H 189 H (70-99) mg/dl Calcium (8.5-10.1) mg/dl Ionized Calcium 1.57 H (1.12-1.32) mmol/L Phosphorus (2.5-4.9) mg/dl Magnesium (1.8-2.4) mg/dl Total Bilirubin (0.2-1) mg/dl AST (15-37) U/L ALT (12-78) U/L Alkaline Phosphatase (45-117) U/L Troponin I (0-0.045) ng/ml Total Protein (6.4-8.2) gm/dl Albumin (3.4-5.0) gm/dl Globulin (2.5-4.0) gm/dl Albumin/Globulin Ratio (0.9-2) TSH (0.300-4.500) uIu/ml Urine Color Urine Appearance (Clear) Urine pH (4.5-7.5) Ur Specific [place] (1.000-1.030) Urine Protein (Negative) Urine Glucose (UA) (Negative) Urine Ketones (Negative) Urine Blood (Negative) Urine Nitrite (Negative) Urine Bilirubin (Negative) Urine Urobilinogen (Negative) Ur Leukocyte Esterase (Negative) 03/21/20 03/21/20 03/20/20 Range/Units 03:34 03:34 21:50 WBC 9.98 (4.8-10.8) K/uL RBC 3.48 L (4.7-6.1) M/uL Hgb 10.4 L (14.0-18.0) g/dL Hct 31.4 L (42-52) % MCV 90.2 (80-100) fL MCH 29.9 (25-34) pg MCHC 33.1 (32-36) g/dL RDW Std Deviation 42.4 (36.4-46.3) fL RDW Coeff of Marian 13.0 (11.5-14.5) % Plt Count 409 H (130-400) K/uL MPV 9.4 (7.4-10.4) fL Immature Gran % (Auto) % Neut % (Auto) % Lymph % (Auto) % Edmunds % (Auto) % Eos % (Auto) % Baso % (Auto) % Neut # (Auto) (1.4-6.5) K/uL Lymph # (Auto) (1.2-3.4) K/uL [place] # (Auto) (0.11-0.59) K/uL Eos # (Auto) (0-0.5) K/uL Baso # (Auto) (0-0.2) K/uL Immature Gran # (Auto) (0.00-0.02) K/uL Sodium 140 140 (136-145) mmol/L Potassium 3.8 4.0 (3.5-5.1) mmol/L Chloride 110 H 106 (98-107) mmol/L Carbon Dioxide 27 27 (21-32) mmol/L Anion Gap 3.0 7.0 (3-11) BUN 18 19 H (7-18) mg/dl Creatinine 1.06 1.18 (0.6-1.4) mg/dl Est Cr Clr Drug Dosing 51.9 46.6 Est GFR ( Amer) 74.3 65.3 Est GFR (Non-Af Amer) 64.1 56.3 BUN/Creatinine Ratio 16.6 16.4 (10-20) Glucose 197 H 271 H (70-99) mg/dl POC Glucose (70-99) mg/dl Calcium 11.6 H 12.7 H* (8.5-10.1) mg/dl Ionized Calcium (1.12-1.32) mmol/L Phosphorus 1.5 L* (2.5-4.9) mg/dl Magnesium 1.7 L (1.8-2.4) mg/dl Total Bilirubin (0.2-1) mg/dl AST (15-37) U/L ALT (12-78) U/L Alkaline Phosphatase (45-117) U/L Troponin I (0-0.045) ng/ml Total Protein (6.4-8.2) gm/dl Albumin (3.4-5.0) gm/dl Globulin (2.5-4.0) gm/dl Albumin/Globulin Ratio (0.9-2) TSH (0.300-4.500) uIu/ml Urine Color Urine Appearance (Clear) Urine pH (4.5-7.5) Ur Specific [place] (1.000-1.030) Urine Protein (Negative) Urine Glucose (UA) (Negative) Urine Ketones (Negative) Urine Blood (Negative) Urine Nitrite (Negative) Urine Bilirubin (Negative) Urine Urobilinogen (Negative) Ur Leukocyte Esterase (Negative) 03/20/20 03/20/20 03/20/20 Range/Units 19:35 17:07 15:53 WBC 11.44 H (4.8-10.8) K/uL RBC 3.66 L (4.7-6.1) M/uL Hgb 10.9 L (14.0-18.0) g/dL Hct 33.0 L (42-52) % MCV 90.2 (80-100) fL MCH 29.8 (25-34) pg MCHC 33.0 (32-36) g/dL RDW Std Deviation 42.3 (36.4-46.3) fL RDW Coeff of Marian 13.0 (11.5-14.5) % Plt Count 436 H (130-400) K/uL MPV 9.3 (7.4-10.4) fL Immature Gran % (Auto) 0.3 % Neut % (Auto) 64.9 % Lymph % (Auto) 27.7 % Edmunds % (Auto) 6.1 % Eos % (Auto) 0.9 % Baso % (Auto) 0.1 % Neut # (Auto) 7.43 H (1.4-6.5) K/uL Lymph # (Auto) 3.17 (1.2-3.4) K/uL Ed[place] # (Auto) 0.70 H (0.11-0.59) K/uL Eos # (Auto) 0.10 (0-0.5) K/uL Baso # (Auto) 0.01 (0-0.2) K/uL Immature Gran # (Auto) 0.03 H (0.00-0.02) K/uL Sodium (136-145) mmol/L Potassium (3.5-5.1) mmol/L Chloride (98-107) mmol/L Carbon Dioxide (21-32) mmol/L Anion Gap (3-11) BUN (7-18) mg/dl Creatinine (0.6-1.4) mg/dl Est Cr Clr Drug Dosing Est GFR ( Amer) Est GFR (Non-Af Amer) BUN/Creatinine Ratio (10-20) Glucose (70-99) mg/dl POC Glucose 153 H (70-99) mg/dl Calcium (8.5-10.1) mg/dl Ionized Calcium (1.12-1.32) mmol/L Phosphorus (2.5-4.9) mg/dl Magnesium (1.8-2.4) mg/dl Total Bilirubin (0.2-1) mg/dl AST (15-37) U/L ALT (12-78) U/L Alkaline Phosphatase (45-117) U/L Troponin I (0-0.045) ng/ml Total Protein (6.4-8.2) gm/dl Albumin (3.4-5.0) gm/dl Globulin (2.5-4.0) gm/dl Albumin/Globulin Ratio (0.9-2) TSH (0.300-4.500) uIu/ml Urine Color Dark Yellow Urine Appearance Clear (Clear) Urine pH 7.0 (4.5-7.5) Ur Specific [place] 1.011 (1.000-1.030) Urine Protein Negative (Negative) Urine Glucose (UA) Negative (Negative) Urine Ketones Negative (Negative) Urine Blood Negative (Negative) Urine Nitrite Negative (Negative) Urine Bilirubin Negative (Negative) Urine Urobilinogen Negative (Negative) Ur Leukocyte Esterase Negative (Negative) 03/20/20 Range/Units 15:53 WBC (4.8-10.8) K/uL RBC (4.7-6.1) M/uL Hgb (14.0-18.0) g/dL Hct (42-52) % MCV (80-100) fL MCH (25-34) pg MCHC (32-36) g/dL RDW Std Deviation (36.4-46.3) fL RDW Coeff of Marian (11.5-14.5) % Plt Count (130-400) K/uL MPV (7.4-10.4) fL Immature Gran % (Auto) % Neut % (Auto) % Lymph % (Auto) % [place] % (Auto) % Eos % (Auto) % Baso % (Auto) % Neut # (Auto) (1.4-6.5) K/uL Lymph # (Auto) (1.2-3.4) K/uL [place] # (Auto) (0.11-0.59) K/uL Eos # (Auto) (0-0.5) K/uL Baso # (Auto) (0-0.2) K/uL Immature Gran # (Auto) (0.00-0.02) K/uL Sodium 138 (136-145) mmol/L Potassium 3.9 (3.5-5.1) mmol/L Chloride 105 (98-107) mmol/L Carbon Dioxide 29 (21-32) mmol/L Anion Gap 4.0 (3-11) BUN 20 H (7-18) mg/dl Creatinine 1.20 (0.6-1.4) mg/dl Est Cr Clr Drug Dosing Not Reportable Est GFR ( Amer) 64.0 Est GFR (Non-Af Amer) 55.2 BUN/Creatinine Ratio 16.8 (10-20) Glucose 153 H (70-99) mg/dl POC Glucose (70-99) mg/dl Calcium 13.6 H* (8.5-10.1) mg/dl Ionized Calcium (1.12-1.32) mmol/L Phosphorus (2.5-4.9) mg/dl Magnesium 1.9 (1.8-2.4) mg/dl Total Bilirubin 0.3 (0.2-1) mg/dl AST 10 L (15-37) U/L ALT 13 (12-78) U/L Alkaline Phosphatase 84 (45-117) U/L Troponin I 0.017 (0-0.045) ng/ml Total Protein 7.3 (6.4-8.2) gm/dl Albumin 2.7 L (3.4-5.0) gm/dl Globulin 4.6 H (2.5-4.0) gm/dl Albumin/Globulin Ratio 0.6 L (0.9-2) TSH 1.550 (0.300-4.500) uIu/ml Urine Color Urine Appearance (Clear) Urine pH (4.5-7.5) Ur Specific [place] (1.000-1.030) Urine Protein (Negative) Urine Glucose (UA) (Negative) Urine Ketones (Negative) Urine Blood (Negative) Urine Nitrite (Negative) Urine Bilirubin (Negative) Urine Urobilinogen (Negative) Ur Leukocyte Esterase (Negative) Medications Administered Current Inpatient Medications Acetaminophen (Acetaminophen 325 Mg Tab) 650 mg PO Q4H PRN PRN Reason: Moderate Pain Stop: 04/19/20 19:37 Dextrose (Dextrose 50% 50 Ml Syringe) 25 - 50 ml IV UD PRN; Protocol PRN Reason: Hypoglycemia Protocol Stop: 04/19/20 19:37 Glucagon (Glucagon For Inj 1 Mg Vial) 1 mg SQ UD PRN; Protocol PRN Reason: Hypoglycemia Protocol Stop: 04/19/20 19:37 Glucose (Glucose 10 Tabs/Tube) 4 - 8 tabs PO UD PRN; Protocol PRN Reason: Hypoglycemia Protocol Stop: 04/19/20 19:37 Glucose (Glucose 40% Gel 15 Gm Tube) 15 - 30 gm PO UD PRN; Protocol PRN Reason: Hypoglycemia Protocol Stop: 04/19/20 19:37 Sodium Chloride (Nss 1000ml) 1,000 mls @ 200 mls/hr IV .Q5H LISA Stop: 04/19/20 19:37 Last Infusion: 03/21/20 10:20 Dose: Infused Documented by: Calcitonin [place] 320 units/ (Syringe) 1.6 mls @ 0 mls/sec SQ BID LISA Stop: 04/20/20 09:29 Last Admin: 03/21/20 10:38 Dose: 320 mls/sec Documented by: Insulin Aspart (Insulin Aspart 100 Units/Ml 3 Ml Pen) 0 units SC ACHS LISA Stop: 04/19/20 20:59 Last Admin: 03/21/20 12:40 Dose: Not Given Documented by: Miscellaneous (Carbohydrates For Hypoglycemia ) 15 - 30 gm PO UD PRN PRN Reason: Hypoglycemia Protocol Stop: 04/19/20 19:37 Multivitamins/Minerals (Cerovite Adv Formula Tab) 1 tab PO DAILY LISA Stop: 04/20/20 08:59 Last Admin: 03/21/20 08:26 Dose: 1 tab Documented by: Ondansetron HCl (Ondansetron Inj 2 Mg/Ml 2 Ml Vial) 4 mg IV Q4H PRN PRN Reason: Nausea And Vomiting Stop: 04/19/20 19:37 Telmisartan (Telmisartan 40 Mg Tab) 40 mg PO DAILY LISA Stop: 04/20/20 08:59 Last Admin: 03/21/20 08:26 Dose: 40 mg Documented by: Resident Activity Tracking Resident Involvement: Resident Care Provided (I supervised Mally and was present during the evaluation and examination the patient. I reviewed her findings and agree with her assement and plan. ) Care Provided: Adult Hospital Medicine
[2020-03-21] MEDS: POLYETHYLENE (MIRALAX) 17 GM PACK PO SCH (20:11)
[2020-03-22 07:44] LABS: Hematocrit (blood only) 35.8 % (42-52); Hemoglobin 11.8 g/dL (14.0-18.0); Mean Corpuscular Hemoglobin 29.6 pg (25-34); Mean Corpuscular Volume 89.9 fL (80-100); Mean Platelet Volume 9.6 fL (7.4-10.4); Platelet Count 475 K/uL (130-400); RDW Coefficient of Variation 12.9 % (11.5-14.5); RDW Standard Deviation 42.4 fL (36.4-46.3); Red Blood Count 3.98 M/uL (4.7-6.1); White Blood Count 12.36 K/uL (4.8-10.8)
[2020-03-22 08:24] LABS: Albumin Globulin Ratio 0.6 (0.9-2); Albumin Level 2.8 gm/dl (3.4-5.0); BUN Creatinine Ratio 12.8 (10-20); Bilirubin,Total 0.3 mg/dl (0.2-1); Calcium 12.1 mg/dl (8.5-10.1); Creatinine Clr Calc Pharmacy 47.4 ml/min; Est GFR (African American) 66.7; Est GFR (Non-African American) 57.5; Globulin 4.9 gm/dl (2.5-4.0); Potassium 3.6 mmol/L (3.5-5.1); Total Protein 7.7 gm/dl (6.4-8.2)
[2020-03-22] MEDS ORDERED: CALCITONIN SALMON 400 UNITS/2 ML SQ SCH (09:00)
[2020-03-22] MEDS: CEROVITE ADV FORMULA TAB PO SCH (09:07)
[2020-03-22] MEDS: TELMISARTAN 40 MG TAB PO SCH (09:07)
[2020-03-22] MEDS: POLYETHYLENE (MIRALAX) 17 GM PACK PO SCH ×2 (09:07→20:36)
[2020-03-22] MEDS: INSULIN ASPART 100 UNITS/ML 3 ML PEN SC SCH ×4 (09:09→20:35)
[2020-03-22] MEDS ORDERED: PHARMACY GLYCEMIC MGMT CONSULT PRN (09:39)
[2020-03-22] MEDS: CALCITONIN SALMON SQ SCH (09:44)
--- NOTE | 2020-03-22 10:02 | Pharmacy Report ---
Pharmacy Glycemic Short Note 2 - Date of Service March 22, 2020 - Glycemic Short BSG Results (Last 24 hours): 03/21/20 03/21/20 03/21/20 11:30 16:29 20:05 Glucose POC Glucose 150 H 234 H 185 H 03/22/20 03/22/20 07:24 07:55 Glucose 207 H POC Glucose 228 H OUTPATIENT ANTIDIABETIC REGIMEN: * glipizide 2.5 mg daily * metformin 500 mg daily * A1c = 6.2 % (03/11/20) ASSESSMENT: * Darek is a 85 yo T2DM with h/o of HTN, hyperparathyroidism, thyroid nodule, hypercalcemia, and vitamin D deficiency * Patient is maintained on oral agents as an outpatient. Oral agents have been held for admission and patient was started on SQ bolus insulin. * All BSGs were above goal over the past 24 hours. I will lower goal range, tighten novolog coverage, and add a conservative dose of basal insulin PLAN FOR INPATIENT GLYCEMIC CONTROL: * Hold outpatient oral diabetes medications * Basal insulin * Lantus 7 units SQ daily * Bolus insulin - tighten CF/CR * NovoLog per scale ACHS or Q6hrs while NPO * LOWER Goal Range: Low 110 mg/dL - High 140 mg/dL * Correction Factor: 25 mg/dL/unit * Nutritional / Prandial insulin per carb ratio of 1 unit per 8 grams CHO consumed PLAN FOR DISCHARGE: * A1c of 6.2% is at goal
[2020-03-22] MEDS ORDERED: LACTATED RINGER'S 1,000 ML IV SCH (11:00)
--- NOTE | 2020-03-22 11:05 | Hospitalist Progress Note ---
Date of Service March 22, 2020 Assessment & Plan (1) Hypercalcemia: #Hypercalcemia: -Ca: 13.6->12.7->11.6->12.1 -Daily CMP -Continue administration of calcitonin 320 U sq x 1 QD -Curbsided nephro recommended trial of IV hydration, Lasix, and bisphosphonate -IV normal saline at 125 mils -IV zoledronic acid 4 mg -IV 10 mg Lasix -If no meaningful improvement by tomorrow consult nephrology -Hands appear swollen. -Improving #Weakness: Secondary to the above -PT/OT consult -Safe for discharge home #Hyperparathyroidism: Elevated calcium + elevated PTH points to primary hyperparathyroidism diagnosis. -PTH 292.7 -We will need endocrine surgery consult for parathyroid removal #Type 2 diabetes mellitus: -ISS with accuchecks achs -A1c equals 6.2 on 03/11/2020 -Hold glipizide and metformin #HTN (hypertension): -Continue telmisartan 40 mg daily #Hyperlipidemia: -Recommend on discharge to follow up with pcp to discuss statin therapy. #Vitamin D deficiency: -History of such, continue multivitamin #Cervical arthritis: -PT/OT consults as above #DVT prophylaxis: -teds, scds CODE: full F/E/N: Heart healthy, DM 2 PT/OT: Ordered Dispo: Telemetry (2) Weakness: (3) Hyperparathyroidism: (4) Type 2 diabetes mellitus: (5) HTN (hypertension): (6) Hyperlipidemia: (7) Vitamin D deficiency: (8) Cervical arthritis: (9) DVT prophylaxis: Admission and Anticipated Discharge Date Admission Date: March 20, 2020 Supervising Physician Co-Signing Physician Notes Attending attestation Pt seen and examined in concert with Dr. Coffman. In agreement with the documented findings as noted in the resident documentation with any exceptions or additions as noted here. Improving weakness, hand swelling and fatigue approaching baseline of the last few months but not prior to elevated calcium level. On examination, S1/S2 nl RRR no MCG. CTAB. Abd NT/ND BS+ve Hypercalcemia 2/2 hyperparathyroidism - uptick in calcium today - continue calcitonin, add furosemide, trend calcium Hypophosphatemia - replete DMII - ISS - restart glipizide and metformin at discharge HLD - would recommend statin therapy at follow up from discharge Else see resident documentation as noted. Subjective Patient lying in bed this morning in no acute distress. Patient reports no acute events overnight endorsing fatigue still, swelling in his hands is subjectively improved. Patient requesting discharge. We spent extensive time explaining to the patient the importance of getting his calcium under control and having a plan to control it upon discharge. Otherwise patient is tolerating his diet, voiding, had a bowel movement, and sleeping okay. All questions were answered, acute concerns related to discharge and surgery to remove parathyroid Review of Systems Review of Systems: All systems reviewed & are unremarkable except as noted in HPI & below Physical Exam Physical Exam: General: In no acute distress HEENT: Normocephalic atraumatic Neck: Trachea midline, normal visual inspection Cardiac: Palpated pulses bilaterally, symmetrical, normal rate, did not appreciate abnormal rhythm Respiratory: Symmetrical chest expansion bilaterally, nonlabored breathing, did not appear in respiratory distress MSK: Moves all extremities, swelling in his hands is decreased Neuro: Alert and oriented Psych: Calm and cooperative Results & Data Results & Data ([facility]) Vital Signs (Past 12 Hours) Vital Signs Temp Pulse Pulse Resp BP BP Pulse Ox 03/22/20 08:00 36.6 C 89 18 167/71 H 96 03/22/20 07:34 86 03/22/20 03:47 36.9 C 90 20 136/72 92 03/21/20 23:30 89 03/21/20 23:08 37.1 C 91 H 18 142/78 H 91 Laboratory Results 03/22/20 03/22/20 03/22/20 Range/Units 09:13 07:55 07:24 WBC (4.8-10.8) K/uL RBC (4.7-6.1) M/uL Hgb (14.0-18.0) g/dL Hct (42-52) % MCV (80-100) fL MCH (25-34) pg MCHC (32-36) g/dL RDW Std Deviation (36.4-46.3) fL RDW Coeff of Marian (11.5-14.5) % Plt Count (130-400) K/uL MPV (7.4-10.4) fL Sodium 141 (136-145) mmol/L Potassium 3.6 (3.5-5.1) mmol/L Chloride 108 H (98-107) mmol/L Carbon Dioxide 24 (21-32) mmol/L Anion Gap 9.0 (3-11) BUN 15 (7-18) mg/dl Creatinine 1.16 (0.6-1.4) mg/dl Est Cr Clr Drug Dosing 47.4 ml/min Est GFR ( Amer) 66.7 Est GFR (Non-Af Amer) 57.5 BUN/Creatinine Ratio 12.8 (10-20) Glucose 207 H (70-99) mg/dl POC Glucose 228 H (70-99) mg/dl Calcium 12.1 H* (8.5-10.1) mg/dl Ionized Calcium 1.57 H (1.12-1.32) mmol/L Total Bilirubin 0.3 (0.2-1) mg/dl AST 15 (15-37) U/L ALT 13 (12-78) U/L Alkaline Phosphatase 93 (45-117) U/L Total Protein 7.7 (6.4-8.2) gm/dl Albumin 2.8 L (3.4-5.0) gm/dl Globulin 4.9 H (2.5-4.0) gm/dl Albumin/Globulin Ratio 0.6 L (0.9-2) 03/22/20 03/21/20 03/21/20 Range/Units 07:24 20:05 16:29 WBC 12.36 H (4.8-10.8) K/uL RBC 3.98 L (4.7-6.1) M/uL Hgb 11.8 L (14.0-18.0) g/dL Hct 35.8 L (42-52) % MCV 89.9 (80-100) fL MCH 29.6 (25-34) pg MCHC 33.0 (32-36) g/dL RDW Std Deviation 42.4 (36.4-46.3) fL RDW Coeff of Marian 12.9 (11.5-14.5) % Plt Count 475 H (130-400) K/uL MPV 9.6 (7.4-10.4) fL Sodium (136-145) mmol/L Potassium (3.5-5.1) mmol/L Chloride (98-107) mmol/L Carbon Dioxide (21-32) mmol/L Anion Gap (3-11) BUN (7-18) mg/dl Creatinine (0.6-1.4) mg/dl Est Cr Clr Drug Dosing ml/min Est GFR ( Amer) Est GFR (Non-Af Amer) BUN/Creatinine Ratio (10-20) Glucose (70-99) mg/dl POC Glucose 185 H 234 H (70-99) mg/dl Calcium (8.5-10.1) mg/dl Ionized Calcium (1.12-1.32) mmol/L Total Bilirubin (0.2-1) mg/dl AST (15-37) U/L ALT (12-78) U/L Alkaline Phosphatase (45-117) U/L Total Protein (6.4-8.2) gm/dl Albumin (3.4-5.0) gm/dl Globulin (2.5-4.0) gm/dl Albumin/Globulin Ratio (0.9-2) 03/21/20 Range/Units 11:30 WBC (4.8-10.8) K/uL RBC (4.7-6.1) M/uL Hgb (14.0-18.0) g/dL Hct (42-52) % MCV (80-100) fL MCH (25-34) pg MCHC (32-36) g/dL RDW Std Deviation (36.4-46.3) fL RDW Coeff of Marian (11.5-14.5) % Plt Count (130-400) K/uL MPV (7.4-10.4) fL Sodium (136-145) mmol/L Potassium (3.5-5.1) mmol/L Chloride (98-107) mmol/L Carbon Dioxide (21-32) mmol/L Anion Gap (3-11) BUN (7-18) mg/dl Creatinine (0.6-1.4) mg/dl Est Cr Clr Drug Dosing ml/min Est GFR ( Amer) Est GFR (Non-Af Amer) BUN/Creatinine Ratio (10-20) Glucose (70-99) mg/dl POC Glucose 150 H (70-99) mg/dl Calcium (8.5-10.1) mg/dl Ionized Calcium (1.12-1.32) mmol/L Total Bilirubin (0.2-1) mg/dl AST (15-37) U/L ALT (12-78) U/L Alkaline Phosphatase (45-117) U/L Total Protein (6.4-8.2) gm/dl Albumin (3.4-5.0) gm/dl Globulin (2.5-4.0) gm/dl Albumin/Globulin Ratio (0.9-2) Medications Administered Current Inpatient Medications Acetaminophen (Acetaminophen 325 Mg Tab) 650 mg PO Q4H PRN PRN Reason: Moderate Pain Stop: 04/19/20 19:37 Dextrose (Dextrose 50% 50 Ml Syringe) 25 - 50 ml IV UD PRN; Protocol PRN Reason: Hypoglycemia Protocol Stop: 04/19/20 19:37 Glucagon (Glucagon For Inj 1 Mg Vial) 1 mg SQ UD PRN; Protocol PRN Reason: Hypoglycemia Protocol Stop: 04/19/20 19:37 Glucose (Glucose 10 Tabs/Tube) 4 - 8 tabs PO UD PRN; Protocol PRN Reason: Hypoglycemia Protocol Stop: 04/19/20 19:37 Glucose (Glucose 40% Gel 15 Gm Tube) 15 - 30 gm PO UD PRN; Protocol PRN Reason: Hypoglycemia Protocol Stop: 04/19/20 19:37 Sodium Chloride (Nss 1000ml) 1,000 mls @ 125 mls/hr IV .Q8H LISA Stop: 04/19/20 19:37 Last Infusion: 03/21/20 10:20 Dose: Infused Documented by: Calcitonin [place] 320 units/ (Syringe) 1.6 mls @ 1.6 mls/sec SQ DAILY LISA Stop: 04/21/20 08:59 Last Admin: 03/22/20 09:44 Dose: 1.6 mls/sec Documented by: Furosemide 10 mg/ Syringe 1 mls @ 4 mls/min IV ONE ONE Stop: 03/22/20 10:48 Zoledronic Acid 4 mg/ Sodium (Chloride) 105 mls @ 210 mls/hr IV ONE ONE Stop: 03/22/20 11:16 Insulin Aspart (Insulin Aspart 100 Units/Ml 3 Ml Pen) 0 units SC ACHS LISA Stop: 04/19/20 20:59 Last Admin: 03/22/20 09:09 Dose: 8 units Documented by: Insulin Glargine (Insulin Glargine Solostar 100 Units/Ml 3 Ml Pen) 7 units SC DAILY LISA Stop: 04/21/20 11:29 Miscellaneous (Carbohydrates For Hypoglycemia ) 15 - 30 gm PO UD PRN PRN Reason: Hypoglycemia Protocol Stop: 04/19/20 19:37 Miscellaneous Information (Pharmacy Glycemic Mgmt Consult) 1 ea N/A UD PRN PRN Reason: Consult Stop: 04/21/20 09:38 Multivitamins/Minerals (Cerovite Adv Formula Tab) 1 tab PO DAILY LISA Stop: 04/20/20 08:59 Last Admin: 03/22/20 09:07 Dose: 1 tab Documented by: Ondansetron HCl (Ondansetron Inj 2 Mg/Ml 2 Ml Vial) 4 mg IV Q4H PRN PRN Reason: Nausea And Vomiting Stop: 04/19/20 19:37 Polyethylene Glycol (Polyethylene (Miralax) 17 Gm Pack) 17 gm PO BID LISA Stop: 04/20/20 20:59 Last Admin: 03/22/20 09:07 Dose: Not Given Documented by: Telmisartan (Telmisartan 40 Mg Tab) 40 mg PO DAILY LISA Stop: 04/20/20 08:59 Last Admin: 03/22/20 09:07 Dose: 40 mg Documented by: Resident Activity Tracking Resident Involvement: Resident Care Provided Care Provided: Adult Hospital Medicine
[2020-03-22] MEDS ORDERED: FUROSEMIDE 10 MG in SYRINGE 0 ML IV ONE (11:15)
[2020-03-22] MEDS ORDERED: ZOLEDRONIC ACID 4 MG in 0.9 % SODIUM CHLORIDE 100 ML IV ONE (11:30)
[2020-03-22] MEDS ORDERED: INSULIN GLARGINE SOLOSTAR 100 UNITS/ML 3 ML PEN SC SCH (11:30)
[2020-03-22] MEDS ORDERED: POTASSIUM PHOS 3 MMOL/1 ML INFUSION IV STA (16:53)
[2020-03-22] MEDS ORDERED: POTASSIUM PHOSPHATE 24 MMOL in SODIUM CHLORIDE 0.9% 500 ML IV ONE (17:30)
[2020-03-22 17:37] LABS: Phosphorus 1.7 mg/dl (2.5-4.9)
[2020-03-22 17:38] LABS: Calcium 12.4 mg/dl (8.5-10.1)
[2020-03-23 07:42] LABS: Basophils # (auto) 0.02 K/uL (0-0.2); Basophils % (auto) 0.1 %; Eosinophils # (auto) 0.11 K/uL (0-0.5); Eosinophils % (auto) 0.8 %; Hematocrit (blood only) 36.5 % (42-52); Hemoglobin 12.4 g/dL (14.0-18.0); Immature Granulocytes # (auto) 0.04 K/uL (0.00-0.02); Immature Granulocytes % (auto) 0.3 %; Lymphocytes # (auto) 3.35 K/uL (1.2-3.4); Mean Corpuscular Hemoglobin 30.7 pg (25-34); Mean Corpuscular Volume 90.3 fL (80-100); Mean Platelet Volume 9.7 fL (7.4-10.4); Monocytes # (auto) 0.91 K/uL (0.11-0.59); Monocytes % (auto) 6.2 %; Neutrophils # (auto) 10.14 K/uL (1.4-6.5); Neutrophils % (auto) 69.6 %; Platelet Count 514 K/uL (130-400); RDW Coefficient of Variation 13.2 % (11.5-14.5); RDW Standard Deviation 43.6 fL (36.4-46.3); Red Blood Count 4.04 M/uL (4.7-6.1); White Blood Count 14.57 K/uL (4.8-10.8)
[2020-03-23] MEDS: TELMISARTAN 40 MG TAB PO SCH (08:12)
[2020-03-23] MEDS: CEROVITE ADV FORMULA TAB PO SCH (08:13)
[2020-03-23] MEDS: POLYETHYLENE (MIRALAX) 17 GM PACK PO SCH (08:13)
[2020-03-23] MEDS: INSULIN ASPART 100 UNITS/ML 3 ML PEN SC SCH ×2 (08:14→11:58)
[2020-03-23 08:28] LABS: Albumin Globulin Ratio 0.6 (0.9-2); Albumin Level 2.8 gm/dl (3.4-5.0); BUN Creatinine Ratio 15.9 (10-20); Bilirubin,Total 0.4 mg/dl (0.2-1); Calcium 12.7 mg/dl (8.5-10.1); Creatinine Clr Calc Pharmacy 51.9 ml/min; Est GFR (African American) 74.3; Est GFR (Non-African American) 64.1; Globulin 4.7 gm/dl (2.5-4.0); Phosphorus 2.2 mg/dl (2.5-4.9); Potassium 3.2 mmol/L (3.5-5.1); Total Protein 7.5 gm/dl (6.4-8.2)
[2020-03-23] MEDS: CALCITONIN SALMON SQ SCH (08:52)
[2020-03-23] MEDS ORDERED: INSULIN GLARGINE SOLOSTAR 100 UNITS/ML 3 ML PEN SC SCH (09:00)
[2020-03-23] MEDS: POTASSIUM CHLORIDE 20 MEQ TABCR PO SCH ×2 (11:00→12:02)
--- NOTE | 2020-03-23 11:24 | Pharmacy Report ---
Pharmacy Glycemic Short Note 2 - Date of Service March 23, 2020 - Glycemic Short BSG Results (Last 24 hours): 03/22/20 03/22/20 03/22/20 11:51 16:28 20:16 Glucose POC Glucose 172 H 143 H 235 H 03/23/20 03/23/20 07:10 07:53 Glucose 179 H POC Glucose 174 H OUTPATIENT ANTIDIABETIC REGIMEN: * glipizide 2.5 mg daily * metformin 500 mg daily * A1c = 6.2 % (03/11/20) ASSESSMENT: 03/23: * Patient received 37 units of insulin yesterday with poor glycemic control * Fasting BSG is improved but remains above goal. Will continue to titrate Lantus dosing. * Post prandial BSGs are elevated. I will continue current parameters for now. I suspect the increase in basal insulin will help to improve post prandials as well. Hesitant to be too aggressive due to patient age and excellent A1c. 03/22: * Darek is a 85 yo T2DM with h/o of HTN, hyperparathyroidism, thyroid nodule, hypercalcemia, and vitamin D deficiency * Patient is maintained on oral agents as an outpatient. Oral agents have been held for admission and patient was started on SQ bolus insulin. * All BSGs were above goal over the past 24 hours. I will lower goal range, tighten novolog coverage, and add a conservative dose of basal insulin PLAN FOR INPATIENT GLYCEMIC CONTROL: * Hold outpatient oral diabetes medications * Basal insulin - increase * Lantus per scale SQ BID * 7 units for BSG < 140 mg/dL * 13 units for BSG 140 mg/dL or more * Bolus insulin * NovoLog per scale ACHS or Q6hrs while NPO * LOWER Goal Range: Low 110 mg/dL - High 140 mg/dL * Correction Factor: 25 mg/dL/unit * Nutritional / Prandial insulin per carb ratio of 1 unit per 8 grams CHO consumed PLAN FOR DISCHARGE: * A1c of 6.2% is at goal
[2020-03-23 14:26] LABS: Appearance Urine Clear (Clear); Bilirubin Urine Negative (Negative); Blood Urine Negative (Negative); Color Urine Yellow; Glucose Urine UA Negative (Negative); Ketones Urine Negative (Negative); Leukocyte Esterase Urine Negative (Negative); Nitrite Urine Negative (Negative); Protein Urine Negative (Negative); Specific Gravity Urine 1.014 (1.000-1.030); Urobilinogen Urine Negative (Negative)
--- NOTE | 2020-03-23 14:37 | Discharge Summary ---
Date of Service March 23, 2020 Admission HPI Per Admitting Provider This is a 85 yo male with past medical history of HTN, DM type II, hyperparathyroidism, thyroid nodule, hypercalcemia, vitamin D deficiency who presents to the ER with complaints of neck pain and by referral of his PCP after some reluctance. Pt is present here with his . Patient was found to have a calcium level of 13.6, which has been ongoing for about a year and slowly trending upward. His albumin has been decreasing at the same time. He has been following with his PCP for this over the past few months and has had elevated calcium levels and was encouraged to seek specialist referral with endocrinology however has been hesitant to seek further recommendations. His main symptoms include fatigue sleeping upwards of 12 hours/day. He also has complaints of neck pain in anterior left region which is been ongoing for about 3 weeks, rates it a 4/10 in pain, and nothing specifically alleviates it. He cannot feel a nodule and denies specific area of swelling in throat. He does not typically have trouble swallowing foods, but occasionally food does get stuck which is alleviated with drinking fluids. Pt reports dry mouth and frequent urination throughout the night which has been ongoing for many months. Lastly, his is concerned that his mood has been poor, and thinks he is depressed. He denies anhedonia, suicidal or homicidal ideations. He has been taking his medication as directed. Patient has received 500 mL bolus NSS and currently remains on fluids. IV calcitonin ordered. EKG has been reviewed without T wave changes. Admission Exam Per Admitting Provider General: awake, alert, no apparent distress Head: Normocephalic, atraumatic, + flushed over cheeks and ears bilaterally ENT: PERRL, EOMI, no pharyngeal exudate, mucous membranes moist, no edema. Chest: Clear to auscultation, on room air, no adventitious breath sounds Cardiac: Regular rate and rhythm, no murmur, no JVD, normal peripheral pulses, good capillary refill Abdominal: NABS x 4 quadrants, soft, nondistended, nontender to palpation, no rebound or guarding Extremities: + peripheral edema involving hands bilaterally and feet with 1+ pitting up to knees. No erythema, calfs nontender to palpation Psych: Normal mood and affect Neuro: AAO x 3, strength intact bilaterally and rated 5/5, no motor deficits, speech is clear, no peripheral sensory deficits Principal Diagnosis New onset symptomatic hypercalcemia secondary to hyperparathyroidism complicated by history of cervical arthritis, history of recent fracture, history of osteoarthritis of the hip, history of type 2 diabetes, history of hypertension. Discharge Exam General: In no acute distress, reporting weakness HEENT: Normocephalic atraumatic Neck: Normal to visual inspection, did not appreciate JVD Cardiac: Palpated pulses bilaterally, symmetrical, I did not appreciate any significant rhythm or rate abnormalities, negative calf tenderness Respiratory: Symmetrical chest expansion bilaterally, good work of breathing, nonlabored GI: Soft, nontender, nondistended, MSK: Moves all extremities Skin: Cool dry and intact Neuro: Alert and oriented Psych: Calm and cooperative Discharge Data Allergies Allergy/AdvReac Type Severity Reaction Status Date / Time No Known Allergies Allergy Verified 03/20/20 16:17 Consultations 03/20/20 17:03 ED Decision to Admit Stat 03/20/20 19:38 Consult Case Management - Discharge Planning Routine 03/22/20 18:21 Consult Case Management - Discharge Planning Routine Ordered Studies 03/20/20 15:31 CT cervical spine wo con Stat CT soft tissue neck w con Stat Hospital Course (1) Hypercalcemia: #Hypercalcemia: Patient was admitted to the hospital for new onset symptomatic hypercalcemia. Patient has had a prolonged history of hypercalcemia secondary to primary hyperparathyroidism. He has been evaluated as an outpatient for this numerous times, and has been recommended to pursue surgery. The patient was initially hesitant to pursue surgery because of the history of surgical complications. Throughout the admission the patient is been more open to the idea of surgery, and plans to pursue it as an outpatient. Given that his hypercalcemia has recently become symptomatic we attempted to lower his calcium. Initially providing him with calcitonin which was successful and acutely lowering his calcium from admission of 13.6-12 0.7-11.6. Unfortunately he experienced tachyphylaxis with calcitonin. We curb sided nephro who recommended a trial of IV hydration, Lasix, and bisphosphonate, he was given IV normal saline, IV zoledronic acid 4 mg, and IV 10 mg Lasix without significant meaningful improvement. After reviewing the patient's records it appears as if he lives with a calcium of 11-12, nomogram symptomatic with a calcium greater than 14. On the day prior to discharge I was able to contact Dr. Trivedi with endocrinology and discussed the history of hypercalcemia, he recommended discharging him on cinacalcet 60 mg p.o. twice daily, and follow-up with him in the outpatient office within a week. While hospitalized the patient received daily CMP's, calcium noted below, patient also noted to have low total protein and low albumin, likely due to poor nutrition recommend PCP discussed with the patient. It is important that this patient keep his scheduled follow-up and pursue more aggressive treatment of his hypercalcemia. This was stressed to the patient throughout the admission. -Ca: 13.6->12.7->11.6->12.1->12.4->12.7 -Cinacalcet 60 mg twice daily -Follow-up with outpatient endocrine within a week of discharge -Provided labs for follow-up CMP and phosphorus in 1 week #Nonspecific leukocytosis On admission the patient had an elevated white blood count to 11.44, this subsequently improved to 9.98, and then trended upward to 12.36 and ultimately 14.57. A day of discharge the patient was extensively evaluated for any sources of infection, he was asked about pain, discomfort, breathing difficulties, constitutional symptoms, and his skin was observed. He denied any symptoms at all with the exception of urinary frequency which may be attributable to his hypercalcemia. To that extent we obtained a UA on discharge which was blum negative. Given the fact that he may have some inflammation from the parathyroid nodule, medication changes, and recent trial of Lasix there are multiple explanations for his elevation leukocytosis. To that extent we advised the patient extensively on signs and symptoms of illness and should he experience any of these he should call his primary care physician or return for follow-up. I will be providing him with a CBC to be obtained as an outpatient prior to his scheduled follow-up. -Obtain outpatient CBC #Weakness: Secondary to the above -PT/OT consult -Safe for discharge home #Hyperparathyroidism: Elevated calcium + elevated PTH points to primary hyperparathyroidism diagnosis. This is a known diagnosis and patient is aware of it -PTH 292.7 #Type 2 diabetes mellitus: -ISS with accmitchelleckteto achs -A1c equals 6.2 on 03/11/2020 -Hold glipizide and metformin resumed on discharge -Outpatient PCP to consider glucose optimization #HTN (hypertension): -Continue telmisartan 40 mg daily #Hyperlipidemia: -Recommend on discharge to follow up with pcp to discuss statin therapy. #Vitamin D deficiency: -History of such, continue multivitamin #Cervical arthritis: -PT/OT consults as above #DVT prophylaxis: -teds, scds CODE: full F/E/N: Heart healthy, DM 2 PT/OT: Ordered, safe to return home Dispo: Home with close follow-up (2) Weakness: (3) Hyperparathyroidism: (4) Type 2 diabetes mellitus: (5) HTN (hypertension): (6) Hyperlipidemia: (7) Vitamin D deficiency: (8) Cervical arthritis: (9) DVT prophylaxis: Total Time Total Time Spent Total Time Spent (In Minutes): 56 Discharge Plan Discharge Items Patient Disposition: Home - Self-Care Reason For Visit: HYPERCALCEMIA Discharge Diagnosis: New onset symptomatic hypercalcemia secondary to hyperparathyroidism complicated by history of cervical arthritis, history of recent fracture, history of osteoarthritis of the hip, history of type 2 diabetes, history of hypertension. Activity: Resume your previous activity Non-emergency contact: Primary Care Provider Call non-emergency contact if: you have any medication questions, your symptoms worsen, your pain is not controlled and your temperature is above 101.5 Follow-up/Referrals: Manish Mejia MD [Primary Care Provider] - Diet: Carb Count or DM1 and Heart Healthy Ambulatory Orders: Complete Blood Count with Diff (Timed) Timeframe: 1 Week Location: Determined by Patient Ordered By: Wilber Coffman Comprehensive Metabolic Panel (Routine) Timeframe: 1 Week Location: Determined by Patient Ordered By: Wilber Coffman Phosphorus (Routine) Timeframe: 1 Week Location: Determined by Patient Ordered By: Wilber Coffman Add Attending Provider Instructions: Care instructions: You were admitted to for treatment of symptomatic hypercalcemia secondary to primary hyperparathyroidism. This is not a new diagnosis for you, you have been aware of this as an outpatient and discussed it with your primary care provider for quite some time. You have been reluctant to pursue surgery really resulting in your new symptomatic hypercalcemia. When he presented to the hospital you endorsing weakness, confusion, frequent urination, swelling in her hands, amongst other common symptoms of hypercalcemia. You are initially given IV fluid hydration, and calcitonin to which she responded well to. Individuals are known to become tolerant to calcitonin, we attempted diuresis (making you pee) with IV Lasix, fluid hydration, and a bisphosphonate (bone Medication) they did not have a significant effect on her calcium balance. After reviewing her history it appears as if your baseline calcium is in the 11-12 range and you are asymptomatic at these levels. It appears that you become symptomatic when her calcium jumps above 14. Prior to discharge we had the opportunity to speak with endocrinology who agreed he was stable for discharge with close follow-up and recommended cinacalcet 60 mg p.o. twice daily. Additionally throughout your hospitalization we monitored your white blood cell count and is been slowly creeping up, this can be indicative of an infection, related to inflammation from the parathyroid nodule, or related to that new medications we have trialed. On the day of discharge we obtained a urinalysis and performed an extensive physical examination and review of symptoms with you which were all negative. To that effect it is extremely important that you monitor your own body in your symptoms, should he develop fever, chills, or other constitutional symptoms that make you concern for infection is important you contact your PCP or return for follow-up #Hypercalcemia Cinacalcet has been called into the [facility] pharmacy listed in your chart. Please take this medication as directed. Should you become confused, or have worsening of your symptoms, you should contact your primary care provider, data modeling architect, or PCP for further instructions. -Cinacalcet 60 mg by mouth once in the morning once in the evening -It is imperative that you follow-up with endocrinology as an outpatient to create a long-term plan for your hypercalcemia -These episodes will continue to recur if in a intermediate accountant plan of action is not established -Obtain a complete metabolic profile in 1 week prior to evaluation by endocrinology -Obtain a phosphorus level in 1 week prior to evaluation by endocrinology #Leukocytosis Throughout your admission your white blood cell count has been rising, this likely represents a nonspecific finding. -Monitor for signs and symptoms of infection, should you develop any of these contact your primary care provider immediately -Obtain a complete blood count in 1 week A discharge summary will be sent to your primary care physician to ensure continuity of care. Please bring this discharge summary with you to your next office appointment so that your provider can review it at that time. Follow-up appointments: - Keep all your follow-up appointments as already scheduled. If you cannot make an appointment, notify your provider. - Please call to request a follow-up appointment with your primary care physician within one week of discharge. Please let us know if you are unable to obtain an appointment Follow-up labs: - Please go to a lab nearest you and obtain the requested lab work. Please have this completed at least 3 hours before your doctor's appointment (or the day before your appointment if possible). Medications: - Your medication list has been reviewed and reconciled upon discharge to ensure accuracy and continuity of care. - You are provided with a list of all your current medications at this time. Please review this list closely and make note of any changes. - Please take all of your medications exactly as prescribed. - Tell your primary care provider if you cannot afford your medications. - Call your primary care provider if you are having any side effects or any other problems. - Call your primary care provider before taking any over the counter medications or supplements, including herbals and vitamins, because some of these may interact with your current medications and/or make your symptoms worse. Symptoms: Please call your primary care provider for symptoms including, but not limited to: fevers (temperatures greater than 100.4), chills, intractable nausea or vomiting, diarrhea, rash, shortness of breath, bleeding, pain, or if you experience any worsening of the symptoms that brought you to the hospital. For EMERGENCY and VERY SERIOUS health-related issues, such as chest pain, shortness of breath, or sudden onset of the symptoms that brought you to the hospital, you may need to call 911 or go directly to the Emergency Room It has been our privilege to take care of you during your hospital stay. And Above All Else Feel Better! Best Wishes, Wilber Coffman MD PGY2 Resident, Family & Community Medicine [facility] Residency at [facility] - [address], [address] MC: [address], [place] [address] Pending Studies at Discharge: No Stand-Alone Forms: My [facility], Smoking Cessation Medications and DC Order Prescriptions: New cinacalcet 60 mg tablet 60 mg PO BID 30 Days Qty: 60 RF: 0 Continued telmisartan [Micardis] 40 mg tablet 40 mg PO DAILY Qty: 90 RF: 3 glipizide 2.5 mg tablet extended release 24hr 2.5 mg PO DAILY Qty: 90 RF: 3 metformin 500 mg tablet 500 mg PO DAILY Qty: 180 RF: 1 Complete Multivitamin Tablet 1 tab PO DAILY RF: 0 Discharge Orders: Discharge Order (Routine); Ordered 03/23/20 Ordered By: Wilber Coffman Admission Data Admit Date/Time: 03/20/20 17:56 Attending Provider: Romeo Castaneda Admit Provider: Sherman Rocha Primary Care Provider: Manish Mejia Other Providers: Sherman Rocha Other Interventions: Discharge Summary Assessment (RN) Last Done: 03/23/20 14:45 Supervising Physician Co-Signing Physician Notes Attending attestation Pt seen and examined in concert with Dr. Coffman. In agreement with the documented findings as noted in the resident documentation with any exceptions or additions as noted here. Continued improvement in hand swelling and weakness. On examination, S1/S2 nl RRR no MCG. CTAB. Abd NT/ND BS+ve Hypercalcemia 2/2 hyperparathyroidism - stable - with improvement in subjective symptoms and baseline elevated calcium level, will discharge with cincalcet per endo recommendation and close follow up for definitive management with repeat calcium and precautions for further symptoms Hypophosphatemia - repleted Leukocytosis - elevated, but has been for weeks without infectious sx and with negative UA - precautions re: infective symptoms, recommend monitoring and further evaluation in outpatient DMII - restart glipizide and metformin at discharge HLD - would recommend statin therapy at follow up from discharge Else see resident documentation as noted. Resident Activity Tracking Resident Involvement: Resident Care Provided Care Provided: Adult [facility]
== END 2020-03-23 16:00 | disposition home or self-care (01) ==
LOC: ED 14:55 → INTOOBSV 17:56 → 2W 17:56 → SUATTDRO 17:56 → 2W 18:38